=== PATIENT | male | born 1985 | race Caucasian/White ===

== ENCOUNTER 2023-12-08 09:46 | Emergency (ER) | payer OTHER ==
[~2023-12-08] VITALS: Ht 172.7 cm; Wt 81.6 kg
[2023-12-08] MEDS ORDERED: SEMA0.253 IJ (10:00)
[2023-12-08] MEDS ORDERED: METOCLOPRAMIDE HCL 10 MG/2 ML VIAL ONE (10:08)
[2023-12-08] MEDS ORDERED: PANTOPRAZOLE SODIUM 40 MG VIAL ONE (10:08)
[2023-12-08] MEDS: PANTOPRAZOLE SODIUM 40 MG VIAL IV ONE (10:19)
[2023-12-08] MEDS: METOCLOPRAMIDE HCL 10 MG/2 ML VIAL IV ONE (10:20)
[2023-12-08 10:23] LABS: BASOPHILS % (AUTO) 0.1 % (0.0-2.0); HEMATOCRIT 50.2 % (36.7-47.1); HEMOGLOBIN 17.3 g/dL (12.5-16.3); LYMPHOCYTES # (AUTO) 0.9 K/uL (0.8-4.8); LYMPHOCYTES % (AUTO) 6.2 % (20.5-51.5); MEAN CORPUSCULAR HGB CONC 35 g/dL (32.5-36.3); MEAN CORPUSCULAR VOLUME 87.1 fL (73.0-96.2); MONOCYTES # (AUTO) 0.6 K/uL (0.1-1.30); NEUTROPHILS # (AUTO) 13.2 K/uL (1.8-8.9); NEUTROPHILS % (AUTO) 89.7 % (38.5-71.5); PLATELET COUNT (AUTO) 261 K/uL (152-348); RED BLOOD CELL COUNT(AUTO) 5.77 MIL/uL (4.06-5.63); RED CELL DISTRIBUTION WIDTH 13.2 % (12.1-16.2); WHITE BLOOD COUNT (AUTO) 14.7 K/uL (3.6-10.2)
[2023-12-08 10:45] LABS: DIFFERENTIAL COMMENT 1
[2023-12-08 10:49] LABS: POTASSIUM 3.8 mmol/L (3.5-5.1)
[2023-12-08 10:54] LABS: ALBUMIN 4.8 g/dL (3.4-5.0); BILIRUBIN,DIRECT 0.3 mg/dL (0.0-0.2); BILIRUBIN,TOTAL 1.1 mg/dL (0.2-1.0); TOTAL PROTEIN, SERUM 9.2 g/dL (6.4-8.2)
[2023-12-08] MEDS ORDERED: AMOX-430 PO (11:14)
[2023-12-08] MEDS ORDERED: LEVO500T90 PO (11:14)
[2023-12-08] MEDS ORDERED: METR500T PO (11:14)
[2023-12-08] MEDS ORDERED: DICY20TA11 PO (11:14)
[2023-12-08 11:38] VITALS: BP 134/78; TEMP 98.3; O2SAT 97
== END 2023-12-08 11:39 | disposition home or self-care (01) ==
LOC: ER 09:50
DX: K52.9 Noninfective gastroenteritis and colitis, unspecified (principal); F17.200 Nicotine dependence, unspecified, uncomplicated; Z79.899 Other long term (current) drug therapy
CPT/HCPCS: 99285; 74176; 96374; 96375; 80076; 80048; 83690; 85025; 36415; J2765; C9113; J7040; A4606; A4663